=== PATIENT | female | born 1995 | race Two or more races ===

== ENCOUNTER 2020-05-03 22:10 | Inpatient (IN) | payer MEDICAID ==
[~2020-05-03] VITALS: Ht 167.6 cm; Wt 99.8 kg
[2020-05-03] MEDS ORDERED: LIDOCAINE 2%HCL (LOCAL ANESTH.) INJ 20ML MDV IJ ONE (22:30)
[2020-05-03] MEDS ORDERED: DERMOPLAST 60ML BOTTLE TOP PRN (22:30)
[2020-05-03] MEDS ORDERED: WITCH HAZEL-GLYCERIN PAD TOP PRN (22:30)
[2020-05-03] MEDS ORDERED: PENICILLIN G POT 5MIL/D5 50ML 50 ML IV ONE (22:30)
[2020-05-03] MEDS ORDERED: PHISODERM TOP SOLN 240ML BTL TOP PRN (22:30)
[2020-05-03] MEDS ORDERED: LACTATED RINGER'S 1,000 ML IV SCH (22:30)
[2020-05-03] MEDS ORDERED: WITCH HAZEL-GLYCERIN PAD TOP ONE (22:36)
[2020-05-03] MEDS ORDERED: METHYLERGONOVINE MALEATE 0.2 MG/ML AMP IM ONE (22:36)
[2020-05-03] MEDS ORDERED: LACT. RINGERS/OXYTOCIN 20UNITS 0 ML IV ONE (22:36)
[2020-05-03] MEDS ORDERED: OXYTOCIN 10UNIT/ML 1ML VIAL ONE (22:36)
[2020-05-03] MEDS ORDERED: DERMOPLAST 60ML BOTTLE TOP ONE (22:36)
[2020-05-03] MEDS ORDERED: PHISODERM TOP SOLN 240ML BTL TOP ONE (22:36)
[2020-05-03] MEDS ORDERED: LIDOCAINE 2%HCL (LOCAL ANESTH.) INJ 20ML MDV ONE (22:37)
[2020-05-04] VITALS (7 sets, daily range): BP systolic 97–118; BP diastolic 50–71
[2020-05-04 02:03] LABS: Albumin 3.2 g/dL (3.4-5.0); BUN/Creatinine Ratio 10.1; Bilirubin, Total 0.3 mg/dL (0.2-1.0); Calcium 8.9 mg/dL (8.5-10.1); Potassium 3.7 mmol/L (3.5-5.1)
[2020-05-04 02:03] LABS: Amphetamine Screen, Urine NEGATIVE (NEGATIVE); Barbiturate Scree,Urine NEGATIVE (NEGATIVE); Benzodiazephine Screen, Urine NEGATIVE (NEGATIVE); Cannabinoid Screen, Urine POSITIVE (NEGATIVE); Cocaine Screen, Urine NEGATIVE (NEGATIVE); Opiate Scree,Urine NEGATIVE (NEGATIVE); Phencyclidine Screen, Urine NEGATIVE (NEGATIVE)
[2020-05-04 02:04] LABS: Basophils # (auto) 0 10 ^3/uL (0-0.2); Basophils % (auto) 0.1 % (0.0-2.0); Eosinophils # (auto) 0 10 ^3/uL (0-0.8); Hematocrit 37.1 % (36.0-46.0); Hemoglobin 11.6 g/dL (12.2-16.2); Lymphocytes # (auto) 0.9 10 ^3/uL (0.4-5.4); Lymphocytes % (auto) 7.4 % (10.0-50.0); Mean Corpuscular Hemoglobin 23.6 pg (28.0-32.0); Mean Corpuscular Hgb Conc. 31.3 g/dL (32.0-36.0); Mean Corpuscular Volume 75.2 fL (80.0-100.0); Monocytes # (auto) 0.4 10 ^3/uL (0-1.3); Monocytes % (auto) 3.5 % (0.0-12.0); Neutrophils # (auto) 10.5 10 ^3/uL (1.6-8.6); Nucleated Red Blood Cells % 0.1 %; Platelet Count (auto) 216 10^3/uL (140-450); Red Blood Cells 4.93 10^6/uL (4.0-5.20); Red Cell Distribution Width 15.1 % (11.8-14.3); White Blood Cell 11.8 10^3/uL (4.4-10.8)
[2020-05-04 02:24] LABS: INR 0.94 (0.9-1.15); Partial Thromboplastin Time 27.2 sec (23.0-31.2)
[2020-05-04] MEDS ORDERED: PENICILLIN G POTASSIUM 2,500,000 UNITS in D5W 5% 50 ML IV SCH (02:30)
--- NOTE | 2020-05-04 03:15 | NUR ---
Ambulation: Patient OOB with standby assistance by RN. Patient ambulated to bathroom with steady gait. Patient able to void 300ml without difficulty. [facility] teaching provided with returned demonstration by patient. Clean gown provided and bed linen changed. Patient ambulated back to bed with steady gait and no distress noted.
[2020-05-04 03:28] LABS: Urine Bacteria FEW /hpf (None Seen); Urine Blood 3+ /uL (Negative); Urine Mucus FEW (None Seen); Urine Specific Gravity 1.031 (1.001-1.035); Urine WBC 1 /hpf (0 - 5)
[2020-05-04] MEDS ORDERED: PREN-96 PO (04:00)
[2020-05-04] MEDS ORDERED: IBUPROFEN 600 MG TAB PO PRN (04:45)
[2020-05-04] MEDS ORDERED: ACETAMINOPHEN 325 MG TAB PO PRN (04:45)
--- NOTE | 2020-05-04 12:45 | NUR ---
Dr. Adames made aware of covid positive results as well as bartholin cyst. Will continue care.
--- NOTE | 2020-05-04 14:53 | NUR ---
Rig Welder, Abbie called, informed that we do not have a drug screen on baby yet, she will call back in the morning.
--- NOTE | 2020-05-04 18:00 | NUR ---
RECIEVED SBAR REPORT FROM SKY ALAMO RN
--- NOTE | 2020-05-04 19:35 | NUR ---
MOTHER OF INFANT INFORMED OF NEED TO DO COVID SWAB OF FEMALE ,THE PT AGREES WITH THE PLAN OF CARE
[2020-05-05 03:00] VITALS: BP 120/83
[2020-05-05 05:07] LABS: RPR Non Reactive (Non Reactive)
[2020-05-05 06:40] VITALS: BP 100/58
[2020-05-05 08:06] LABS: Rubella Antibodies, IgG 1.08 index (Immune >0.99)
[2020-05-05 10:30] VITALS: BP 137/78
--- NOTE | 2020-05-05 11:11 | NUR ---
Discharge: Discharge instructions given as ordered. Pt encouraged to follow up with [facility]. Public Health information provided for PT to make a virtual follow up visit due to being positive for COVID19. All questions and concerns addressed. Patient verbalized understanding. Medication reconciliation completed and copy given to patient.
--- NOTE | 2020-05-05 11:19 | NUR ---
Per PT may drive self home.
--- NOTE | 2020-05-05 12:00 | NUR ---
Discharge: Patient taken to vehicle via ambulatory with all personal belongings, accompanied by staff. No distress noted at time of departure, no adverse changes in status since initial assessment.
--- NOTE | 2020-05-05 17:06 | NUR ---
assessment Patient is a 24 year old female who is alert and oriented. Per ss consult no care, positive THC. Patient has admitted to smoking marijuana 1 to 2 months ago. Patient stated she found out late that she was and by the time she got situated she could not find an DATA RECOVERY PLANNER. Patient stated FOB is not involved. Patient stated she has good family support. Patient stated she has all provisions for the baby. I informed patient I will be making a CPS report. Patient verbalized understanding. CPS report made to CPS keyboard specialist Zachary report # [id number]. Addendum: 05/05/20 at 1716 by Abbie Lyon Amended: Links added.
== END 2020-05-05 12:00 | disposition home or self-care (01) | DRG 560 ==
LOC: LDRP 22:10 → OBSVTOIN 22:23 → LDRP 22:24
PROVIDERS: ADMIT Obstetrics & Gynecology; ATTEND Obstetrics & Gynecology
PROC: 10E0XZZ Delivery of Products of Conception, External Approach (ICD-10-PCS; principal; 2020-05-04)
DX: O62.3 Precipitate labor (principal); O69.81X0 Labor and delivery complicated by cord around neck, without compression, not applicable or unspecified; O77.0 Labor and delivery complicated by meconium in amniotic fluid; O98.52 Other viral diseases complicating childbirth; U07.1 COVID-19; Z37.0 Single live birth; O99.354 Diseases of the nervous system complicating childbirth; M54.5 Low back pain; G89.29 Other chronic pain; Z3A.38 38 weeks gestation of pregnancy; O71.82 Other specified trauma to perineum and vulva
CPT/HCPCS: 36415; 59025; 59409; 80053; 80307; 81001; 85025; 85610; 85730; 86592; 86703; 86762; 86850; 86900; 86901; 87340; 87426; 96372; G0378; J2590; J7060

== ENCOUNTER 2020-09-20 16:59 | Emergency (ER) | payer MEDICAID ==
[~2020-09-20] VITALS: Ht 180.3 cm; Wt 91.2 kg
[~2020-09-20 16:59] MED LIST: PREN-96 PO
[2020-09-20 17:06] VITALS: BP 120/71
[2020-09-20 19:20] LABS: Red Blood Cells 4.63 10^6/uL (4.0-5.20)
[2020-09-20 19:22] LABS: Basophils # (auto) 0 10 ^3/uL (0-0.2); Basophils % (auto) 0.1 % (0.0-2.0); Eosinophils # (auto) 0.2 10 ^3/uL (0-0.8); Eosinophils % (auto) 1.4 % (0.0-7.0); Hematocrit 28.9 % (36.0-46.0); Hemoglobin 9.2 g/dL (12.2-16.2); Lymphocytes # (auto) 0.7 10 ^3/uL (0.4-5.4); Lymphocytes % (auto) 6.6 % (10.0-50.0); Mean Corpuscular Hemoglobin 19.9 pg (28.0-32.0); Mean Corpuscular Hgb Conc. 31.9 g/dL (32.0-36.0); Mean Corpuscular Volume 62.4 fL (80.0-100.0); Monocytes # (auto) 1.4 10 ^3/uL (0-1.3); Neutrophils # (auto) 8.5 10 ^3/uL (1.6-8.6); Neutrophils % (auto) 78.9 % (37.0-80.0); Platelet Count (auto) 418 10^3/uL (140-450); White Blood Cell 10.7 10^3/uL (4.4-10.8)
[2020-09-20 19:28] LABS: Red Cell Distribution Width 22.1 % (11.8-14.3)
[2020-09-20 19:30] LABS: Albumin 3.1 g/dL (3.4-5.0); Anion Gap 6 (5-15); Blood Urea Nitrogen 8 mg/dL (7-18); Carbon Dioxide 27 mmol/L (21-32); Chloride 105 mmol/L (98-107); Glucose 106 mg/dL (74-106); Potassium 3.5 mmol/L (3.5-5.1); Sodium 138 mmol/L (136-145)
[2020-09-20 19:36] LABS: Alanine Aminotransferase 213 U/L (13-56); Alkaline Phosphatase 189 U/L (45-117); Aspartate Aminotransferase 455 U/L (15-37); BUN/Creatinine Ratio 11.8; Bilirubin, Total 0.7 mg/dL (0.2-1.0); GFR African American 139 mL/min; GFR Non-African American 115 mL/min; Total Protein 7.8 g/dL (6.4-8.2)
[2020-09-20 19:57] LABS: Beta HCG, Quantitative < 1 mlU/mL (1-3)
== END 2020-09-20 20:35 | disposition left against medical advice (07) ==
LOC: ER 17:02
DX: F41.0 Panic disorder [episodic paroxysmal anxiety] (principal); R94.5 Abnormal results of liver function studies; D64.9 Anemia, unspecified
CPT/HCPCS: 36415; 80053; 84443; 84484; 84702; 85025; 85379; 93005